=== PATIENT | female | born 1950 | race Caucasian/White ===

== ENCOUNTER 2018-09-12 15:54 | Inpatient (IN) ==
[2018-09-12] MEDS ORDERED: NS 1,000 ML IV PRN (16:03)
--- NOTE | 2018-09-12 16:13 | Diag Imaging Result Doc PS360 ---
EXAM: CT HEAD W/O CONTRAST - 09/12/2018 HISTORY: SLURRED SPEECH TECHNIQUE: CT head without contrast COMPARISON: None. FINDINGS: There is no evidence of intracranial hemorrhage, mass effect, midline shift, or hydrocephalus. There are some chronic appearing microvascular ischemic changes. There is no indication of recent infarct, although acute infarcts may not be immediately visible. There is no evidence of skull fracture. IMPRESSION: Chronic microvascular ischemic changes. No visible acute intracranial abnormality. No hemorrhage or mass effect. This exam was performed using automated exposure control, adjustment of mA or kV according to patient size, and/or use of iterative reconstruction technique. Electronically signed by Junito Arellano 09/12/2018 4:10 PM
[2018-09-12] MEDS ORDERED: PLAVIX PO ONE (16:16)
[2018-09-12 16:36] LABS: BASO# 0.01 X1000 (0.0-0.2); BASO% 0.2 % (0.0-0.8); EOS% 1.6 % (0.0-10.0); HEMATOCRIT 37.1 % (37.0-47.0); IMM GRAN# 0.03 X1000 (0.0-0.04); IMM GRAN% 0.5 % (0.0-0.5); LYMPH# 1.82 X1000 (1.2-3.4); LYMPH% 29.8 % (20.5-51.1); MCHC 32.3 g/dL (33-37); MCV 92.8 FL (81-99); MONO# 0.43 X1000 (0.11-0.59); MPV 10.8 FL (7.4-10.4); NEUT# 3.71 X1000 (1.4-6.5); NEUT% 60.9 % (42.2-75.2); PLT 91 X1000 (130-400); RDW 14.2 % (11.5-14.5)
[2018-09-12 16:52] LABS: INR 0.94; PROTIME 13.1 Seconds (11.0-16.0)
[2018-09-12 16:53] LABS: PTT 28.7 Seconds (22.3-41.8)
--- NOTE | 2018-09-12 17:05 | Diag Imaging Result Doc PS360 ---
EXAM: CHEST-PORTABLE INDICATION: SOB TECHNIQUE: One view COMPARISON: 03/11/2018 FINDINGS: There is stable mild elevation of the right hemidiaphragm. The lungs are grossly clear. There is no discrete pleural fluid collection or pneumothorax. The cardiomediastinal silhouette and central vasculature are grossly unremarkable. IMPRESSION: No evidence of acute pathology by plain radiograph. Electronically signed by Johan Cheng 09/12/2018 5:03 PM
[2018-09-12 17:06] LABS: ALBUMIN 4.5 g/dL (3.5-5.0); CALCIUM 8.4 mg/dL (8.8-10.2); CREATININE 1.1 mg/dL (0.5-0.9); POTASSIUM 3.7 mmol/L (3.5-5.1); TOTAL BILIRUBIN 0.3 mg/dL (0.20-1.00); TOTAL PROTEIN 6.5 g/dL (6.3-8.3)
--- NOTE | 2018-09-12 17:13 | PROVIDER DOCUMENTATION ---
This chart was entered by Queta Spear Scribe, acting as scribe for Freedom Cote MD. HPI-Neurological Disorder - General Stated Complaint: difficulty speaking Time Seen by Provider: 09/12/18 15:59 Source: patient Allergies/Adverse Reactions: Patient Allergies Allergy/AdvReac Type Severity Reaction Status Date / Time Penicillins Allergy RASH Verified 03/11/18 12:17 aspirin AdvReac Unknown Unknown Verified 03/11/18 12:17 Home Medications: Home Medication List Medication Instructions Recorded Confirmed Last Taken Type Gabapentin [Neurontin] 300 mg PO BID #60 capsule 09/19/14 12/03/17 12/01/16 08:30 Rx Buspirone [Buspar] 10 mg PO BID 10/31/15 12/03/17 12/01/16 08:30 History Furosemide [Lasix] 40 mg PO DAILY 10/31/15 12/03/17 12/01/16 08:30 History Isosorbide Mononitrate [Isosorbide 30 mg PO DAILY 10/31/15 12/03/17 12/01/16 08:30 History Mononitrate ER] Levothyroxine Sodium [Synthroid] 88 mcg PO DAILY 10/31/15 12/03/17 12/01/16 08:30 History Meloxicam 7.5 mg PO DAILY 10/31/15 12/03/17 2 Days Ago History ~11/30/16 Metformin E.r. [Glucophage Xr] 500 mg PO DAILY 10/31/15 12/03/17 2 Weeks Ago History ~11/18/16 PRAVAstatin [Pravachol] 40 mg PO DAILY 10/31/15 12/03/17 12/01/16 08:30 History Trazodone E.r. [Oleptro ER] 150 mg PO QHS 10/31/15 12/03/17 12/01/16 19:30 History Potassium Chloride 10 meq PO DAILY 12/01/16 12/03/17 12/01/16 08:30 History Hydrocodone/Acetaminophen [Mccarley 1 each PO Q4H PRN PRN #20 tablet 12/02/16 12/03/17 Unknown Rx 10-325 Tablet] Polyethylene Glycol 3350 [Miralax] 17 gm PO DAILY PRN PRN #90 04/26/17 12/03/17 Unknown Rx powd.pack Albuterol Sulfate [Proair Hfa] 1 - 2 gm IH 4XDAY PRN PRN #1 12/03/17 Unknown Rx hfa.aer.ad Budesonide/Formoterol Fumarate 1 puff IH BID #1 hfa.aer.ad 12/03/17 Unknown Rx [Symbicort 160-4.5 Mcg Inhaler] Metoprolol Tartrate 25 mg PO DAILY 12/03/17 12/03/17 Unknown History Naproxen 1 tab PO DAILY 12/03/17 12/03/17 Unknown History Azithromycin [Zithromax] 500 mg PO DAILY #7 tab 03/11/18 Unknown Rx Guaifenesin/Codeine [Robitussin-AC] 5 ml PO Q4H PRN PRN #6 oz 03/11/18 Unknown Rx - History of Present Illness-Neuro Nature of Presenting Problem: 68yof presents to ED cc slurred/stopped speech, headache and weakness in both loegs that has gotten worse over last 3 days. Pt has hx of CHF and neuropathy in legs. Headache Location: reports: frontal Severity: reports: moderate Onset/Duration: reports: 3 days ago Timing: reports: still present Any recent trauma/injury?: reports: none Character of Deficits: reports: new weakness, impaired speech, decreased ability to stand, decreased ability to walk New weakness or altered sensation location:: reports: RLE, LLE Cognitive Baseline: alert, oriented x3 Associated Symptoms: reports: decreased ability to walk or stand, slurred speech Similar Symptoms Previously?: No Recently seen or treated by another doctor?: No Review of Systems - Adult - REVIEW OF SYSTEMS - ADULT Constitutional: reports: see HPI, mikie. denies: chills, fever Eyes: reports: no symptoms reported Ears, Nose, Mouth & Throat: reports: no symptoms reported Cardiovascular: reports: no symptoms reported Respiratory: reports: no symptoms reported Gastrointestinal: reports: no symptoms reported Genitourinary: reports: no symptoms reported Musculoskeletal: reports: no symptoms reported Integumentary: reports: no symptoms reported Neurological: reports: see HPI, headache/migraines, slurred speech Psychiatric: reports: no symptoms reported Endocrine: reports: no symptoms reported Hematologic/Lymphatic: reports: no symptoms reported Allergic/Immunologic: reports: no symptoms reported All Other Systems: Reviewed and Negative Past History - Adult - PAST MEDICAL HISTORY-ADULT Review of Records: reports: Nursing Assessment Review, Medications Reviewed, Social history reviewed & non-contributory. Major Childhood Illnesses: reports: denies history Cardiovascular: reports: CHF, HTN Respiratory: reports: asthma, COPD, sleep apnea Gastrointestinal: reports: diverticulosis, GERD, other (diverticulitis) Obstetrical/Gynecological: reports: denies history Genitourinary: reports: denies history Musculoskeletal: reports: denies history Neurological: Psychiatric: reports: depression Endocrine/Immune: reports: thyroid disorder Other Conditions: reports: denies history - PRIOR SURGERIES/PROCEDURES Surgical/Procedure History: reports: hysterectomy - IMMUNIZATION STATUS Childhood Immunizations: See Nurse Assessment Flu Vaccine: UTD - FAMILY HISTORY Family History: reviewed, not pertinent Physical Exam- Neurological - Physical Exam-Neuro Initial Vital Signs Reviewed: Yes General Appearance: appears well, alert, no apparent distress. negative: anxious, combative Eye Exam: bilateral eye: normal inspection, PERRL HENMT: normocephalic/atraumatic, moist mucous membranes, normal ENT inspection. negative: angioedema, hearing deficit Head Injury: no evidence of injury. negative: active bleeding, raccoon eyes Neck: non-tender, full range of motion, supple, normal inspection. negative: C- spine tenderness Respiratory: chest non-tender, lungs clear, normal breath sounds, no pleuratic chest pain, no respiratory distress, no accessory muscle use. negative: crackles, rales, rhonchi, stridor, wheezing Cardiovascular: normal peripheral pulses, regular rate, rhythm, no edema, no gallop, no JVD, no murmur. negative: bradycardia, tachycardia Abdominal Exam: normal bowel sounds, non tender, soft, no organomegaly, no pulsatile mass. negative: distended, guarding, rigid, rebound, tenderness, hernia, mass Extremity: normal range of motion, non-tender, normal gait, normal inspection, no pedal edema, no calf tenderness, normal capillary refill, pelvis stable. negative: deformity underlay stitcher Exam: normal hearing, normal speech, PERRL. negative: abnormal eye position, abnormal gag reflex, abnormal pupil position, abnormal speech, facial asymmetry, facial droop, facial paresthesias, facial weakness, hearing deficit (R), hearing deficit (L), tongue deviation to R, tongue deviation to L Coordination/Gait: normal finger to nose, normal gait, negative Romberg's sign. negative: positive Romberg's sign, abnormal gait, ABN nose to finger (R), ABN nose to finger (L) Motor/Sensory: no motor deficit, no sensory deficit, no pronator drift, negative Babinski's sign. negative: positive Babinski's sign, pronator drift (R), pronator drift (L), sensory deficit, weak motor strength RUE, weak motor strength LUE, weak motor strength RLE, weak motor strength LLE Neurologic: underlay stitcher II-XII nml as tested, grossly normal, no motor/sensory deficits. negative: facial droop, focal weakness, motor weakness, sensory deficit Integumentary: normal color, normal turgor, warm/dry. negative: cyanosis, diaphoresis, jaundice Psych/Mental Status: normal mood/affect, normal thought content, normal thought process, oriented x 3. negative: disoriented x 3, anxious, disheveled, depressed affect - Glascow Coma Scale Best Eye Response: (4) open spontaneously Best Verbal Response: (5) oriented Best Motor Response: (6) obeys commands Progress - PLAN OF CARE/RESULTS Progress/Plan/Lab Results: Vital Signs - 8 hr 09/12/18 15:59 Temperature 97.4 F L Pulse Rate 88 Respiratory Rate 16 Blood Pressure 118/102 O2 Sat by Pulse Oximetry 92 L Laboratory Results - last 24 hr 09/12/18 09/12/18 09/12/18 16:18 16:18 16:18 WBC 6.10 RBC 4.00 L Hgb 12.0 Hct 37.1 MCV 92.8 MCH 30.0 MCHC 32.3 L RDW Std Deviation 14.2 Plt Count 91 L MPV 10.8 H Immature Gran % (Auto) 0.5 Neut % (Auto) 60.9 Lymph % (Auto) 29.8 Hall % (Auto) 7.0 Eos % (Auto) 1.6 Baso % (Auto) 0.2 Immature Gran # (Auto) 0.03 Neut # (Auto) 3.71 Lymph # (Auto) 1.82 Hall # (Auto) 0.43 Eos # (Auto) 0.10 Baso # (Auto) 0.01 PT INR PTT (Actin FS) Sodium 143 Potassium 3.7 Chloride 98 Carbon Dioxide 35 Anion Gap 10 BUN 10 Creatinine 1.1 H Estimated GFR/1.73 m2 49 BUN/Creatinine Ratio 9 Glucose 112 H POC Glucose Calculated Osmolality 285 Calcium 8.4 L Total Bilirubin 0.30 AST 39 H ALT 38 H Alkaline Phosphatase 110 H Troponin T < 0.010 Total Protein 6.5 Albumin 4.5 Globulin 2.0 Albumin/Globulin Ratio 2.0 09/12/18 09/12/18 16:18 16:18 WBC RBC Hgb Hct MCV MCH MCHC RDW Std Deviation Plt Count MPV Immature Gran % (Auto) Neut % (Auto) Lymph % (Auto) Hall % (Auto) Eos % (Auto) Baso % (Auto) Immature Gran # (Auto) Neut # (Auto) Lymph # (Auto) Hall # (Auto) Eos # (Auto) Baso # (Auto) PT 13.1 INR 0.94 PTT (Actin FS) 28.7 Sodium Potassium Chloride Carbon Dioxide Anion Gap BUN Creatinine Estimated GFR/1.73 m2 BUN/Creatinine Ratio Glucose POC Glucose 109 H Calculated Osmolality Calcium Total Bilirubin AST ALT Alkaline Phosphatase Troponin T Total Protein Albumin Globulin Albumin/Globulin Ratio Orders Category Date Time Status Cardiac Monitoring DIRECTED Care 09/12/18 16:03 Active Finger Stick Blood Sugar (ED) DIRECTED Care 09/12/18 16:03 Active Misc. NRSG Communication Order DIRECTED Care 09/12/18 16:03 Active Saline Loc NOW Care 09/12/18 16:03 Active CHEST-PORTABLE [RAD] Stat Exams 09/12/18 16:[address] HEAD W/O CONTRAST [CT] Stat Exams 09/12/18 15:42 Completed BNP [PRO B-NATRIURETIC PEPTIDE] Stat Lab 09/12/18 16:18 Received CBC WITH ELECTRONIC DIFF [HEME] Stat Lab 09/12/18 16:18 Completed COMPREHENSIVE METABOLIC PANEL [CHEM] Stat Lab 09/12/18 16:18 Completed PROTIME WITH INR [COAG] Stat Lab 09/12/18 16:18 Completed PTT [COAG] Stat Lab 09/12/18 16:18 Completed TROPONIN T Stat Lab 09/12/18 16:[address] W/POSS RFLX CULT [URINALYSIS] Stat Lab 09/12/18 16:03 Uncollected URINE DRUG SCREEN PL Stat Lab 09/12/18 16:03 Uncollected 0.9% Sodium Chloride Inj [Ns] 1,000 ml Med 07/22/19 16:03 Active IV 125 mls/hr Clopidogrel [Plavix] Med 09/12/18 16:16 Discontinued 75 mg PO NOW ONE EKG [EKG] Stat Ther 09/12/18 16:03 Ordered Result Diagrams: 09/12/18 16:18 09/12/18 16:18 - REASSESSMENT Reassessment #1 Time Reassessed: 17:12 Status: unchanged (SYMPTOMS UNCHANGED IN ER. NOT TPA CANDIDATE DUE TO NIH=1 AND SYMPTOM ONSET > 4.5 HOURS . DISCUSSED WITH HOSPITALIST WILL ADMIT) - EKG 1 Time of EKG reading by physician:: 16:16 EKG Read and Signed by:: Freedom Cote EKG Interpretation (*Must complete 3 of following elements*): Abnormal Rate: 75 Rhythm: normal sinus [place]: left [place] Interval: normal - XRAY 1 XRAY: Bilateral XRAY Study: Chest Impression: See EMR Report (IMPRESSION: No evidence of acute pathology by plain radiograph. Electronically signed by Johan Cheng 09/12/2018 5:03 PM) - CT/MRI 1 CT Study: Head Impression: See EMR Report (IMPRESSION: Chronic microvascular ischemic changes. No visible acute intracranial abnormality. No hemorrhage or mass effect. This exam was performed using automated exposure control, adjustment of mA or kV according to patient size, and/or use of iterative reconstruction technique. Electronically signed by Junito Arellano 09/12/2018 4:10 PM) Departure - Departure Date of Disposition Decision: 09/12/18 Time of Disposition Decision: 17:09 DIAGNOSIS: CVA (cerebral vascular accident) Qualifiers: CVA mechanism: unspecified Qualified Code(s): I63.9 - Cerebral infarction, unspecified Disposition: ADMITTED INPATIENT 09 Certified Medical Emergency: Emergent Condition: Stable Additional Freetext Instructions: ED Follow Up Instructions: You have been treated by a care provider in the Emergency Department. These instructions are being provided to you so you can have an understanding of how to care for yourself upon discharge. Upon discharge from the Emergency Department, you are responsible for making arrangements for follow-up care by a physician of your choice. Take all prescribed medications as directed. Return to the Emergency Department immediately for any new or worsening symptoms. You may call the Physician Referral phone number at [phone] to obtain a list of Physicians who are taking new patients. Referrals and Follow-Ups: None,PCP [Primary Care Provider] - - Critical Care Note This patient required my direct & personal management of CC.: No Attestation - Physician/ LATRELL Attestation Patient care was provided by Advanced Practice Provider:: No The physician spent face to face time with patient:: Yes Advanced Practice Provider documentation review:: Supervising physician onsite and consulted in the evaluation and care of this patient. The physician did have a face to face encounter with the patient. - NIH Stroke Scale NIH Type: Initial Evaluation Level of Consciousness: 0-Alert LOC Questions (ask month and age): 1-Answers One Correctly LOC Commands (ask to open & close eyes;make a fist, let go): 0-Obeys Both Corre ctly Best Gaze (horizontal eye movement): 0-Normal Visual (use finger movement, counting or visual threat): 0-No Visual Loss Facial Palsy (show teeth or raise eyebrows & close eyes tght: 0-Symmetrical Movement Motor Function-left arm: 0-Normal Motor Function-right arm: 0-Normal Motor Function-left le-Normal Motor Function-right le-Normal Sensory(pin prick to face,arms,trunk,legs-compare side/side): 0-No Ataxia Best Language(name item/read sentence.Ex-Down to Earth): 0-No Aphasia Dysarthria(Pt read words or say words Ex.Mama,Tip-Top,Thanks: 0-Normal Articulation Extinction and Inattention: 0-Normal NIH Total Score: 1 This chart was documented by the indicated scribe, (Queta Spear Scribe) and accurately reflects the services I performed and decisions made by me, Freedom Cote MD, as attested by the provider's signature.
--- NOTE | 2018-09-12 17:13 | EKG Report ---
Test Performed on : 09/12/2018 4:06:52 PM Test Reason : CVA Blood Pressure : / mmHG Vent. Rate : 075 BPM Atrial Rate : 075 BPM P-R Int : 158 ms QRS Dur : 086 ms QT Int : 418 ms P-R-T Axes : 030 -43 022 degrees QTc Int : 466 ms Normal sinus rhythm. Left axis deviation Abnormal ECG When compared with ECG of 11-MAR-2018 15:24, No significant change was found Unconfirmed Result
[2018-09-12] MEDS ORDERED: MIRALAX PO PRN (20:25)
[2018-09-12] MEDS ORDERED: ULTRAM PO PRN (20:25)
[2018-09-12 20:37] LABS: BILIRUBIN URINE NEGATIVE (NEGATIVE); BLOOD URINE NEGATIVE (NEGATIVE); CLARITY CLEAR (CLEAR); COLOR YELLOW; GLUCOSE URINE NEGATIVE (NEGATIVE); KETONE URINE NEGATIVE (NEGATIVE); LEUKOCYTES URINE NEGATIVE (NEGATIVE); NITRITE URINE NEGATIVE (NEGATIVE); PROTEIN URINE NEGATIVE (NEGATIVE); SP GRAVITY URINE 1.015; UROBILINOGEN URINE NORMAL
[2018-09-12 20:52] LABS: UR AMPHETAMINES QUAL NONE DETECTED (NONE DETECT); UR BARBITUATES QUAL NONE DETECTED (NONE DETECT); UR BENZODIAZEPIN QUAL NONE DETECTED (NONE DETECT); UR CANNABINOIDS QUAL NONE DETECTED (NONE DETECT); UR COCAINE QUAL NONE DETECTED (NONE DETECT); UR METHADONE QUAL NONE DETECTED (NONE DETECT); UR METHAMPHETAMINE QUAL NONE DETECTED (NONE DETECT); UR OPIATES QUAL NONE DETECTED (NONE DETECT); UR OXYCODONE QUAL NONE DETECTED (NONE DETECT); UR PCP QUAL NONE DETECTED (NONE DETECT); UR PROPOXYPHENE QUAL NONE DETECTED (NONE DETECT); UR TCA QUAL NONE DETECTED (NONE DETECT)
[2018-09-12 20:53] LABS: URINE BACTERIA 1+ /HFP; URINE EPITHELIAL CELLS <10 /HPF (<10)
[2018-09-12 20:54] LABS: URINE CAST NONE SEEN /LPF; URINE CRYSTAL NONE SEEN /HPF; URINE SOURCE CLEAN CATCH; URINE YEAST NONE SEEN /HPF
[2018-09-12] MEDS: NEURONTIN PO SCH (21:10)
[2018-09-12] MEDS: BUSPAR PO SCH (21:10)
[2018-09-12] MEDS: DESYREL PO SCH (21:10)
[2018-09-12] MEDS: HUMULIN R SUBQ SCH (21:12)
--- NOTE | 2018-09-12 21:35 | HISTORY AND PHYSICAL ---
CHIEF COMPLAINT: Dysarthria. HISTORY OF PRESENT ILLNESS: This is a 68-year-old female with history of confusion. She has had episodes off and on for the last 48 hours where she cannot remember things, and then she has more confusion. They have not persisted and she usually gets better within a few minutes, but it has kind of gone up and down since last 48 hours. Today, she did have an episode where she could not speak, and she had dysarthria. She also reported weakness in her legs. She has a history of multiple medical problems, but she has never had a stroke or mini-stroke before. She denies any recent change in her medications. She had another episode of dizziness and difficulty with word, expressive aphasia, but again was very transient. Mother did have a history of CVA. Patient was placed in Observation for TIA. PAST MEDICAL HISTORY: 1. Type 2 diabetes. 2. CHF. 3. Hypothyroidism. 4. Hyperlipidemia. 5. Neuropathy. 6. Gout. 7. COPD. PAST SURGICAL HISTORY: 1. She has had a hysterectomy. 2. She has had a clubfoot repair. FAMILY HISTORY: Mother had CVA and also CHF. SOCIAL HISTORY: No tobacco. No ethanol. ALLERGIES: Penicillin and aspirin. MEDICATIONS: List is being compiled, but: 1. Trazodone 150. 2. BuSpar 10 b.i.d. 3. Metformin 500 daily. 4. Imdur 30 daily. 5. Lasix 40 daily. 6. Metoprolol 25 daily. 7. Naprosyn. 8. Klor-Con. 9. Pravachol 40 daily. 10. Synthroid 88 daily. 11. Tramadol p.r.n. 12. Zyloprim 300 daily. 13. MiraLAX 17 daily. 14. Neurontin 300 b.i.d. 15. ProAir. 16. Symbicort. REVIEW OF SYSTEMS: Otherwise negative times a 10 point review of systems. PHYSICAL EXAMINATION: VITAL SIGNS: Her blood pressure is stable at 106/57, heart rate 83, respiratory rate of 20, temperature 98.1 degrees, 93% on room air. GENERAL: Well developed female, in no acute distress. HEAD: Normocephalic and atraumatic. EYES: Pupils are equal, round, and reactive to light. Extraocular movements were intact. She did have a slightly dysconjugate gaze, especially on upward deflection, but she may have a lateral strabismus. EARS, NOSE, THROAT: She had moist mucous membranes. CARDIOVASCULAR: Regular rate and rhythm. PULMONARY: Bilateral breath sounds. GI: Soft, nontender, nondistended. Bowel sounds are positive. NEUROLOGIC: Besides her dysconjugate gaze at time, was negative. She did kind of have this persistent twitching of her eyelids, palpebrae, sometimes mouth, almost rhythmic, but there were no tremors noted anywhere else. SKIN: Clean, dry, intact. LABORATORY DATA: Unremarkable, in the sense of white count, CBC, maybe a little bit of dehydration. AST and ALT mildly elevated. ASSESSMENT: This is a 68-year-old female presenting with an acute confusional and aphasia episode, without clear etiology. 1. Neurologic. Possible transient ischemic attack versus akathisia versus process. We will continue antiplatelet therapy, monitor on telemetry, get MRI tomorrow, get carotid and echocardiogram, and continue gentle hydration. If she is not improved, we may have to entertain getting a neurology opinion. 2. Diabetes. Will continue to follow her blood sugars. Those appear to be stable. 3. In evaluating her medications, I do not appreciate anything that would necessarily cause any dyskinesia. She is on BuSpar, tramadol, Neurontin, which should actually be helpful. These are the only things I can think of that would cause any issues, but we will continue to follow closely. We also have to, I think, consider there may be concern about her family. She mentioned multiple times that episodes like this were the only way she could get her family to acknowledge her, but we will continue to monitor closely. cc: MD Saad Elizabeth MD
[2018-09-13] MEDS: HUMULIN R SUBQ SCH (06:11)
[2018-09-13 07:31] LABS: CALCIUM 7.6 mg/dL (8.8-10.2); POTASSIUM 4.1 mmol/L (3.5-5.1)
[2018-09-13 07:36] LABS: ALBUMIN 3.6 g/dL (3.5-5.0); ALKALINE PHOSPHATASE 101 U/L (32-104); CHOLESTEROL 180 mg/dL (0-200); DIRECT BILIRUBIN < 0.20 mg/dL (0.00-0.20); GOT 36 U/L (10-30); GPT 33 U/L (10-36); HDL 41 mg/dL (45-65); LDL 95 mg/dL; TOTAL PROTEIN 5.9 g/dL (6.3-8.3); TRIGLYCERIDES 220 mg/dL (35-135); VLDL 44 mg/dL
[2018-09-13 07:38] LABS: HEMOGLOBIN A1C 5.6 % (4.8-6.0)
[2018-09-13 07:43] LABS: BASO# 0.01 X1000 (0.0-0.2); BASO% 0.2 % (0.0-0.8); EOS% 1.9 % (0.0-10.0); HEMATOCRIT 34.2 % (37.0-47.0); HEMOGLOBIN 10.9 g/dL (12.0-16.0); IMM GRAN# 0.02 X1000 (0.0-0.04); IMM GRAN% 0.4 % (0.0-0.5); LYMPH# 1.22 X1000 (1.2-3.4); LYMPH% 23.8 % (20.5-51.1); MCH 29.8 PG (27-31); MCHC 31.9 g/dL (33-37); MCV 93.4 FL (81-99); MONO% 7.8 % (1.7-9.3); MPV 11.3 FL (7.4-10.4); NEUT# 3.38 X1000 (1.4-6.5); NEUT% 65.9 % (42.2-75.2); PLT 78 X1000 (130-400); RBC 3.66 XMIL (4.2-5.4); RDW 14.2 % (11.5-14.5); WBC 5.13 X1000 (4.8-10.8)
[2018-09-13] MEDS: VENTOLIN HFA INH PRN ×2 (07:52→16:05)
[2018-09-13] MEDS: SYMBICORT 160/4.5 MICROGM INHALER INH SCH ×2 (07:53→19:32)
[2018-09-13] MEDS ORDERED: ATIVAN IV ONE ×2 (08:38→14:30)
[2018-09-13] MEDS: GLUCOPHAGE XR PO SCH (08:53)
[2018-09-13] MEDS: BUSPAR PO SCH ×2 (08:53→21:27)
[2018-09-13] MEDS: NEURONTIN PO SCH ×2 (08:53→21:26)
[2018-09-13] MEDS: SYNTHROID PO SCH (08:54)
[2018-09-13] MEDS: PLAVIX PO SCH (08:54)
[2018-09-13] MEDS: IMDUR PO SCH (08:54)
[2018-09-13] MEDS: LOPRESSOR PO SCH ×3 (08:54→21:26)
[2018-09-13] MEDS: HUMULIN R (PARKWAY) SUBQ SCH ×4 (08:57→16:38)
--- NOTE | 2018-09-13 11:03 | Extremity Venous Study ---
EXAM: Carotid Ultrasound - 09/13/2018 HISTORY: tia TECHNIQUE: Carotid flow studies COMPARISON: None. FINDINGS: There is no substantial atherosclerotic plaquing identified in the right carotid system. Maximum systolic velocity in the right internal carotid is 52 cm/s, and maximum diastolic velocity is 13 cm/s. The right internal to common carotid systolic velocity ratio is 1.0. The flow velocities and ratio suggests 0-39% stenosis at the right internal carotid. The right vertebral demonstrates antegrade flow. There is no substantial atherosclerotic plaquing identified in the left carotid system. Maximum systolic velocity in the left internal carotid is 82 cm/s, and maximum diastolic velocity is 80 cm/s. The left internal to common carotid systolic velocity ratio is 1.0. The flow velocities and ratio suggests 0-39% stenosis at the left internal carotid. The left vertebral demonstrates antegrade flow. IMPRESSION: 0-39% stenosis at right internal carotid. 0-39% stenosis at left internal carotid. Electronically signed by Junito Arellano 09/13/2018 11:00 AM
--- NOTE | 2018-09-13 14:54 | ECHO REPORT ---
ORDER DATE: 09/13/2018 ECHOCARDIOGRAPHIC MEASUREMENTS: 1. Interventricular septum 1.1. 2. Left ventricular posterior wall 1.0. 3. Diastolic diameter 5.6. 4. Aorta 3.4 cm. 5. Left atrium 3.7 cm. SUMMARY: 1. Technically suboptimal study. 2. Poor acoustic window. 3. Pulmonic valve was normal. 4. There is trace pulmonary regurgitation. 5. Aortic valve leaflets were trileaflet. 6. Mitral valve was normal. 7. Tricuspid valve was normal. 8. There is mitral annular calcification. 9. Mild tricuspid regurgitation. 10. Peak velocity across the tricuspid valve was 2.1 m/sec. 11. Pulmonary artery systolic pressure of 27 mmHg. 12. Peak velocity across the aortic valve less than 2 m/sec. 13. There is no aortic stenosis or regurgitation. 14. There is mild mitral regurgitation. 15. Normal left ventricular cavity size. 16. Estimated ejection fraction of 60%. 17. Endocardium not well visualized in all views. 18. Anterior echo-free space suggestive of pericardial fat pad was noted. 19. There is no pericardial effusion or obvious intracardiac mass or thrombus seen. cc: MD Urban Moreno MD
--- NOTE | 2018-09-13 16:12 | Diag Imaging Result Doc PS360 ---
EXAM: MRI BRAIN W/WO CONTRAST - 09/13/2018 HISTORY: r/o cva TECHNIQUE: MRI brain without and with contrast. Images are obtained prior to and following gadolinium administration. COMPARISON: 09/12/2018 CT head without contrast, 03/07/2014 MRI brain without contrast FINDINGS: There are moderate chronic microvascular ischemic changes which appear similar to the 03/07/2014 MRI brain. The diffusion weighted images show no areas of restricted diffusion (no evidence of acute infarct). There is no evidence of intracranial hemorrhage, mass effect, midline shift, or hydrocephalus. There is no abnormal enhancement identified. IMPRESSION: Chronic microvascular ischemic changes. No visible acute intracranial abnormality. No evidence of acute infarct. Electronically signed by Junito Arellano 09/13/2018 4:10 PM
--- NOTE | 2018-09-13 19:58 | PROGRESS NOTE ---
DATE: 09/13/2018 SUBJECTIVE: Patient notes that she is still having issues with her speech occasionally. PHYSICAL EXAMINATION: Vital Signs: Temperature 98, pulse 83, respiratory rate 18, BP 127/89. General: Patient is awake, alert. She is in no current distress. Interestingly, her speech was completely normal when she began speaking, but after talking for a short time, she seemingly began having more difficulty with dysarthria. HEENT: Normocephalic. Neck: Supple. Cardiovascular: Regular rate. No murmurs. Chest: Clear, nonlabored. Abdomen: Soft, nondistended. Extremities: Moves all extremities. ASSESSMENT: 1. Dysarthric speech. 2. Generalized weakness that seems to come and go. 3. Diabetes. PLAN: The patient is to have an MRI today. Assuming this is normal, we may be able to discharge her home. I am certainly concerned that she may have myasthenia gravis, as she does note that her speech as well as her general weakness gets worse until she stops talking or stops walking. She also notes that she actually has some fatigue frequently while eating and has to stop eating due to that. Once again, assuming that her testing is normal, hopefully we can discharge her home either later today or first thing in the morning, and she can follow up outpatient with Neurology for further testing. cc: Tommy Roy MD
[2018-09-13] MEDS ORDERED: PRAVACHOL PO SCH (21:00)
[2018-09-13] MEDS: DESYREL PO SCH (21:27)
[2018-09-14] MEDS: HUMULIN R (PARKWAY) SUBQ SCH ×2 (00:04→07:54)
[2018-09-14] MEDS: SYNTHROID PO SCH (06:34)
[2018-09-14] MEDS: SYMBICORT 160/4.5 MICROGM INHALER INH SCH (07:45)
[2018-09-14 08:22] VITALS: BP 102/51
[2018-09-14] MEDS: GLUCOPHAGE XR PO SCH (09:00)
[2018-09-14] MEDS: PLAVIX PO SCH (09:00)
[2018-09-14] MEDS: LOPRESSOR PO SCH (09:00)
[2018-09-14] MEDS: BUSPAR PO SCH (09:00)
[2018-09-14] MEDS: NEURONTIN PO SCH (09:00)
[2018-09-14] MEDS: IMDUR PO SCH (09:00)
--- NOTE | 2018-09-15 00:50 | DISCHARGE SUMMARY ---
ADMISSION DATE: 09/12/2018 DISCHARGE DATE: 09/14/2018 DIAGNOSES: 1. Dysarthric speech. 2. Generalized weakness that seems to come and go. 3. Diabetes mellitus type 2. 4. History of congestive heart failure. 5. Hypothyroid. 6. Chronic obstructive pulmonary disease. DIAGNOSTICS: 1. CT of the head revealed chronic microvascular ischemic changes. No visible acute intracranial abnormality. No hemorrhage or mass effect. 2. Chest x-ray revealed no evidence of acute pathology. 3. Brain MRI revealed moderate chronic microvascular ischemic changes which appears similar to the 03/07/2014 MRI of the brain. The diffusion-weighted images show no areas of restricted diffusion. No evidence of acute infarct. 4. Carotid Doppler bilateral revealed 0 to 39% stenosis at the right internal carotid and left internal carotid. HOSPITAL COURSE: Ms Medel presented to the emergency room with having episodes of dysarthria along with weakness in her legs. She does have a history of confusion. The family stated that this was unchanged. The family did state that over the 48 hours prior to coming in to the emergency room episodes of dysarthria lasted a few minutes and they did completely resolve in between. She continued to have intermittent issues with her speech. She also did note that she has had some generalized weakness lately that gets worse until she stops talking or walking. She has even recently had reported having episodes of fatigue while eating. Therefore, she has stopped eating. As the MRI was negative and symptoms have improved, Dr. Roy feels that the patient is ready to be discharged and can follow up with her primary care physician and Neurology on an outpatient testing. DISCHARGE VITAL SIGNS: Blood pressure is 102/51 with a heart rate of 65, respirations 20, temperature 97.5 degrees with room air saturations 98%. DISCHARGE PHYSICAL EXAMINATION: Cardiovascular: Regular rate and rhythm. S1 and S2 appreciated. She has no lower extremity edema with calves nontender. Pulmonary: Breath sounds clear no increased work of breathing noted. Gastrointestinal: Abdomen is soft, nontender, nondistended with bowel sounds in all 4 quadrants. Neurologic: She is alert, oriented. She followed commands. [employer], she had 4/5 muscle strength x4 extremities. Interestingly, during the hospitalization she would start out a conversation speaking normal without any hesitation then after talking for short time she would have difficulty with dysarthria. She would complain of being tired. She would stop talking and state the symptoms resolved FOLLOWUP: Dr. Mabry. She needs to call the office in the morning and schedule an appointment in the next 1 to 2 weeks, sooner if needed. Neurology follow-up can be arranged at this time. She has been instructed to call to be seen sooner or return to the ER for any syncope, dizziness, any chest pain or palpitations, shortness of breath, cough, fever, chills, night sweats, temperature greater than 101, any nausea, vomiting, diarrhea, constipation, black or bloody vomitus or stools, any hematuria, dysuria, frequency, urgency, any change and her speech, speaking patterns, any change in her muscle strength or movements or for any questions or concerns that she may have. She is being discharged home in stable condition with family members. TIME SPENT: This is a greater than 30 minute discharge. I called Dr. Mabry, updated him on Dr. Roy's concerns. He will follow up the patient and arrange neurology outpatient followup as long as the patient is agreeable. Dictated by MARK Carr for Tommy Roy MD cc: MARK Carr MD Adnan A. Seljuki, MD
--- NOTE | 2018-09-15 03:22 | DISCHARGE SUMMARY ---
ADMISSION DATE: 09/12/2018 DISCHARGE DATE: 09/14/2018 ADDENDUM: Patient seen and examined by myself. Full note dictated and discussed with nurse practitioner. Patient was admitted to the hospital for what appeared to be TIA symptoms, although this does not appear to be the case. While I was standing there talking to her, her voice sounded normal and then became more garbled. She also notes that she has jaw tiredness and weakness when she is eating. She gets fatigued very easily. The patient's MRI and full workup thus far has been negative with 0 to 39 percent bilateral carotid ultrasound. She has chronic microvascular changes on her MRI. We will discharge patient home. Discussed her that she needs follow up outpatient with her primary care and needs to follow up with Neurology. Certainly concerned that she may have myasthenia gravis given her symptomatology. The patient is aware and agrees to follow-up. cc: Tommy Roy MD
== END 2018-09-14 11:26 | disposition home or self-care (01) | DRG 92 ==
LOC: P.ED 15:54 → P.MEDSURG 18:16 → SUATTDRO 18:16
PROVIDERS: ATTEND Family Medicine
CPT/HCPCS: 70450; 70553; 71010; 71045; 80048; 80053; 80061; 80076; 80104; 80301; 80305; 81001; 82948; 83036; 83880; 84443; 84484; 85025; 85610; 85730; 93005; 93306; 93880; 94640; 94761; 96360; 99285; A9270; A9579; G0431; G0434; G0477; J2060; J7030; XXXXX